=== PATIENT | female | born 1980 | race Caucasian/White ===

== ENCOUNTER → 2020-01-11 07:35 | Outpatient (BNVA) | payer MEDICAID, SELFPAY | PROVIDERS: Family Provider Family Medicine; PCP Family Medicine; Visit Provider Psychiatry & Neurology Psychiatry | DX: F33.9 Major depressive disorder, recurrent, unspecified (principal); F43.12 Post-traumatic stress disorder, chronic; E55.9 Vitamin D deficiency, unspecified; E63.9 Nutritional deficiency, unspecified; F50.81 Binge eating disorder; G47.33 Obstructive sleep apnea (adult) (pediatric); Z99.89 Dependence on other enabling machines and devices; G47.00 Insomnia, unspecified | CPT/HCPCS: 90834; 99205 ==

== ENCOUNTER → 2021-09-01 09:03 | Outpatient (BNVA) | payer MEDICAID, SELFPAY | PROVIDERS: Family Provider Family Medicine; PCP Family Medicine; Visit Provider Internal Medicine | DX: E23.7 Disorder of pituitary gland, unspecified (principal); E55.9 Vitamin D deficiency, unspecified; R13.10 Dysphagia, unspecified; E01.0 Iodine-deficiency related diffuse (endemic) goiter; R51.9 Headache, unspecified; Z87.891 Personal history of nicotine dependence | CPT/HCPCS: 99204 ==